=== PATIENT | female | born 1990 | race Caucasian/White ===

== ENCOUNTER 2016-02-07 17:00 | Emergency (ER) | payer MEDICAID ==
[~2016-02-07 17:00] MED LIST: CEPH-460 PO; PRENTAB72 PO
--- NOTE | 2016-02-07 18:15 | PD ---
HPI Chief Complaint Fall at home, Date Seen: Feb 07, 2016 Travel History International Travel<30 Days: No Contact w/Intl Traveler<30Days: No History of Present Illness HPI Patient is 33 week intrauterine G 4 P1 follow-up [facility] for care. She presents after falling at home and she states she caught herself before she had hit her belly but she is cramping in the lower abdomen. She denies bleeding or leakage of fluid, baby is active, NST reactive Para: 1 : 4 : 2 History Obstetric History Obstetric History One vaginal delivery and several losses Social History Alcohol Use: No Tobacco Use: No Substance Abuse: No Allergies-Medications (Allergen,Severity, Reaction): Coded Allergies: Magnesium Sulfate (Verified Allergy, Severe, FACE/CHEST TURNS PURPLE, ) PT DENIES Home Meds Active Scripts Vit W/ Ferrous Fumara () Tab1 Tab PO DAILY #90 TAB Prov:David Brewer MD 06/17/13 Reported Medications Cephalexin (Keflex)500 Mg [id number] Mg PO Q8H #30 CAP Ref 0 01/15/16 Review of Systems General / Constitutional: No: Fever, Weight Gain, Chills, Other Gastrointestinal: Abdominal Pain Physical Exam Narrative GENERAL: Well-nourished, well-developed patient. SKIN: Warm and dry. HEAD: Normocephalic and atraumatic. EYES: No scleral icterus. No injection or drainage. ENT: No nasal drainage noted. Mucous membranes pink. Airway patent. NECK: Supple, trachea midline. No JVD. CARDIOVASCULAR: Regular rate and rhythm without murmurs, gallops, or rubs. RESPIRATORY: Breath sounds equal bilaterally. No accessory muscle use. BREASTS: Bilateral exam showed no masses , no retractions, no nipple discharge. ABDOMEN/GI: Abdomen soft, non-tender, bowel sounds present, no rebound, no guarding Gravid to [-33] weeks size Fundal Height: [32 cm-] GENITOURINARY: External Genitalia: intact and normal in appearance BUS glands: [-] Cervix: [-Posterior] Dilatation: [-0] Effacement: [-thick] Station: [-3] Presentation: [-] Membranes: [intact ] Uterine Contractions: [none-] FHT's: Category: [1-] Baseline: [-144] Reactive: [Reactive-] Variability: [-] Decels: [none-] EXTREMITIES: No cyanosis or edema. BACK: Nontender without obvious deformity. No CVA tenderness. NEUROLOGICAL: Awake and alert. Motor and sensory grossly within normal limits. Five out of 5 muscle strength in all muscle groups. Normal speech. MDM Interpretation(s) 33 weeks gestation with fall at home no direct abdominal trauma however she is having some crampy pain. Denies bleeding or ruptured membranes. Baby is active heart rate tracing reactive and there are no regular contractions Plan Plan is 2 hour observation. monitoring, for 2 hrs and if reactive DC home to bedrest she can take Tylenol for pain heating pad or hot bath and increase her oral fluids Diagnosis Diagnosis: Primary Impression: Fall Additional Impression: Abdominal pain during in third trimester Disposition: 01 DISCHARGE HOME Condition: Stable Mayo Dillon II, MD Feb 07, 2016 18:15
== END 2016-02-07 20:07 | disposition home or self-care (01) ==
LOC: HOBED 17:00
DX: O26.893 Other specified pregnancy related conditions, third trimester (principal); R10.9 Unspecified abdominal pain; Z3A.33 33 weeks gestation of pregnancy
CPT/HCPCS: 99284

== ENCOUNTER 2016-03-21 17:12 | Emergency (ER) | payer MEDICAID ==
--- NOTE | 2016-03-21 18:12 | PD ---
HPI Chief Complaint pelvic pressure Date Seen: Mar 21, 2016 Time Seen: 17:45 Travel History International Travel<30 Days: No Contact w/Intl Traveler<30Days: No Known Affected Area: No History of Present Illness HPI 25yo at [id number] here for pelvic pressure. Patient has no records here and believes that she is actually [id number]. Ob provider is Giss[facility] Alves. Her due date is based on her last visit here in early Feb.Denies vag bleeding, discharge. Some intermittent contractions for the past 3 days. Last visit here and last visit to [facility] had cervical exam at 4cm/50% effacement. Para: 2 : 3 History Past Medical History Medical History: Denies Significant Hx Obstetric History Obstetric History x 2 Past Surgical History Narrative Surgical Right arm fracture Appendectomy Family History Family History: Negative Social History Alcohol Use: No Tobacco Use: No Substance Abuse: No Allergies-Medications (Allergen,Severity, Reaction): Coded Allergies: Magnesium Sulfate (Verified Allergy, Severe, FACE/CHEST TURNS PURPLE, ) PT DENIES Home Meds Active Scripts Vit W/ Ferrous Fumara () Tab1 Tab PO DAILY #90 TAB Prov:David Brewer MD 06/17/13 Reported Medications Cephalexin (Keflex)500 Mg [id number] Mg PO Q8H #30 CAP Ref 0 01/15/16 Review of Systems Except as stated in HPI: all other systems reviewed are Neg Physical Exam Narrative GENERAL: Well-nourished, well-developed patient. SKIN: Warm and dry. HEAD: Normocephalic and atraumatic. EYES: No scleral icterus. No injection or drainage. ENT: No nasal drainage noted. Mucous membranes pink. Airway patent. NECK: Supple, trachea midline. No JVD. CARDIOVASCULAR: Regular rate and rhythm without murmurs, gallops, or rubs. RESPIRATORY: Breath sounds equal bilaterally. No accessory muscle use. BREASTS: Bilateral exam showed no masses , no retractions, no nipple discharge. ABDOMEN/GI: Abdomen soft, non-tender, bowel sounds present, no rebound, no guarding Gravid to [-] weeks size Fundal Height: [-]40 GENITOURINARY: External Genitalia: intact and normal in appearance BUS glands: [-]nl Cervix: [-] Dilatation: [-] 4 Effacement: [-]50 Station: [-] -3 Presentation: [-] vertex Membranes: [intact or ruptured]intact Uterine Contractions: [-] Occasional q15min FHT's: Category: [-] 1 Baseline: [-]135 Reactive: [-] Variability: [-] mod, accels present Decels: [-] absent EXTREMITIES: No cyanosis or edema. BACK: Nontender without obvious deformity. No CVA tenderness. NEUROLOGICAL: Awake and alert. Motor and sensory grossly within normal limits. Five out of 5 muscle strength in all muscle groups. Normal speech. [facility] Medical Record Reviewed: Yes (reviewed previous admission/deliveries) Plan Discussed labor signs/symptoms [facility] Diagnosis Diagnosis: Primary Impression: False labor after 37 completed weeks of gestation Additional Impression: 39 weeks gestation of Disposition: 01 DISCHARGE HOME Barbara Herrera MD Mar 21, 2016 18:12
== END 2016-03-21 18:32 | disposition home or self-care (01) ==
LOC: HOBED 17:12
DX: O47.1 False labor at or after 37 completed weeks of gestation (principal); Z3A.37 37 weeks gestation of pregnancy
CPT/HCPCS: 59025